=== PATIENT | female | born 1980 | race African-American/Black ===

== ENCOUNTER 2019-10-16 17:30 | Emergency (ER) | payer OTHER ==
[~2019-10-16] VITALS: Ht 149.9 cm; Wt 49.4 kg
[2019-10-16 17:59] VITALS: BP 169/113
[2019-10-16 18:47] LABS: Urine Amorphous Crystal FEW /hpf (None Seen); Urine Bacteria NONE SEEN /hpf (None Seen); Urine Blood 1+ /uL (Negative); Urine Mucus FEW (None Seen); Urine Specific Gravity 1.016 (1.001-1.035); Urine WBC 2 /hpf (0 - 5)
[2019-10-16] MEDS ORDERED: AZITHROMYCIN 250 MG TAB PO ONE (19:15)
[2019-10-16] MEDS ORDERED: cefTRIAXone SOD 1,000 MG VL IM ONE (19:15)
== END 2019-10-16 19:45 | disposition home or self-care (01) ==
LOC: ER 17:34
DX: N30.01 Acute cystitis with hematuria (principal); R30.0 Dysuria; R35.0 Frequency of micturition; Z20.2 Contact with and (suspected) exposure to infections with a predominantly sexual mode of transmission
CPT/HCPCS: 81001; 96372; 99283; J0696

== ENCOUNTER 2020-02-23 19:30 | Emergency (ER) | payer MEDICAID, OTHER ==
[~2020-02-23] VITALS: Ht 149.9 cm; Wt 49.4 kg
[2020-02-23 21:15] LABS: Urine WBC None Seen /hpf (0 - 5)
[2020-02-23 21:30] LABS: Urine Amorphous Crystal FEW /hpf (None Seen); Urine Bacteria NONE SEEN /hpf (None Seen); Urine Blood Negative /uL (Negative); Urine Mucus FEW (None Seen); Urine Specific Gravity 1.016 (1.001-1.035)
[2020-02-23] MEDS ORDERED: cefTRIAXone SODIUM 250 MG VL IM ONE (22:15)
[2020-02-23] MEDS ORDERED: AZITHROMYCIN 250 MG TAB PO ONE (22:15)
[2020-02-23 22:34] VITALS: BP 160/117
== END 2020-02-23 22:38 | disposition home or self-care (01) ==
LOC: ER 19:31
DX: N89.8 Other specified noninflammatory disorders of vagina (principal); Z20.2 Contact with and (suspected) exposure to infections with a predominantly sexual mode of transmission; Z32.02 Encounter for pregnancy test, result negative
CPT/HCPCS: 81001; 81025; 96372; 99283; J0696